=== PATIENT | female | born 1955 | race African-American/Black ===

== ENCOUNTER 2018-04-24 01:56 | Emergency (ER) | payer OTHER ==
[~2018-04-24] VITALS: Ht 154.9 cm; Wt 48.6 kg
[~2018-04-24 01:56] MED LIST: BACL10TA PO; GABA-531 PO; SUMA25TA9 PO
[2018-04-24 05:56] VITALS: BP 128/77
== END 2018-04-24 05:55 | disposition home or self-care (01) ==
LOC: EMS 01:56
DX: K02.9 Dental caries, unspecified (principal); F17.210 Nicotine dependence, cigarettes, uncomplicated; M19.90 Unspecified osteoarthritis, unspecified site; G43.909 Migraine, unspecified, not intractable, without status migrainosus; G89.29 Other chronic pain; M54.9 Dorsalgia, unspecified; Z71.6 Tobacco abuse counseling; Z79.899 Other long term (current) drug therapy; Z88.6 Allergy status to analgesic agent
CPT/HCPCS: 99406

== ENCOUNTER 2024-03-06 11:02 | Emergency (ER) | payer OTHER ==
[~2024-03-06] VITALS: Ht 157.5 cm; Wt 57.3 kg
[~2024-03-06 11:02] MED LIST changes: +GABA-1181 PO; -GABA-531 PO; -SUMA25TA9 PO
[2024-03-06 11:07] VITALS: TEMP 98.2
[2024-03-06] MEDS ORDERED: ASPI-1444 PO (11:51)
[2024-03-06] MEDS ORDERED: FAMO40TA7 PO (11:51)
[2024-03-06] MEDS ORDERED: FLUO20DR4 TP (11:51)
[2024-03-06] MEDS ORDERED: UMEC1DIS IH (11:51)
[2024-03-06] MEDS ORDERED: TACR30OI5 TP (11:51)
[2024-03-06] MEDS ORDERED: LETR2.5 PO (11:51)
[2024-03-06] MEDS ORDERED: TRIA15OI6 TP (11:51)
[2024-03-06] MEDS ORDERED: ATOR10TA69 PO (11:51)
[2024-03-06] MEDS ORDERED: ALBU18HF12 IH (11:51)
[2024-03-06] MEDS ORDERED: AMLO5TAB66 PO (11:51)
[2024-03-06] MEDS ORDERED: KETO-108 OU (11:51)
[2024-03-06] MEDS ORDERED: GABA600T10 PO (11:51)
[2024-03-06] MEDS ORDERED: KETO15CR2 TP (11:51)
[2024-03-06] MEDS: KETOROLAC TROMETHAMINE 30 MG/ML VIAL IM ONE (12:51)
[2024-03-06] MEDS ORDERED: KETO10TA2 PO (13:48)
[2024-03-06 14:15] VITALS: BP 121/70; PULSE 81; RESP 18
== END 2024-03-06 14:15 | disposition home or self-care (01) ==
LOC: EMS 11:02
DX: M47.896 Other spondylosis, lumbar region (principal); F17.210 Nicotine dependence, cigarettes, uncomplicated; Z88.5 Allergy status to narcotic agent
CPT/HCPCS: 99283; 72100; 96372; J1885